=== PATIENT | female | born 2000 | race African-American/Black ===

== ENCOUNTER 2020-12-15 00:26 | Emergency (ER) | payer BC ==
--- NOTE | 2020-12-15 02:45 | ER ---
Nurse's Notes [facility] Name: Desi Diaz Age: 20 yrs Sex: Female : 2000 Arrival Date: 12/15/2020 Time: 00:34 Bed 27 Private MD: Diagnosis: Streptococcal pharyngitis Presentation: 12/15 01:05 Chief complaint: Patient states: Swollen tonsils and sore throat that started yesterday em after I got of work. I feel really anxious and if feels hard to swallow. Coronavirus screen: Client denies travel out of the [place] in the last 14 days. Ebola Screen: Patient negative for fever greater than or equal to 101.5 degrees Fahrenheit, and additional compatible Ebola Virus Disease symptoms Patient denies exposure to infectious person. Patient denies travel to an Ebola-affected area in the 21 days before illness onset. Initial Sepsis Screen: Does the patient meet any 2 criteria? No. Patient's initial sepsis screen is negative. Does the patient have a suspected source of infection? No. Patient's initial sepsis screen is negative. Risk Assessment: Do you want to hurt yourself or someone else? Patient reports no desire to harm self or others. Onset of symptoms was December 14, 2020. 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 - Social history:: Smoking status: Patient reports the use of cigarette tobacco products, denies chronic smoking, but will smoke occasionally, Patient/guardian denies using alcohol, street drugs. - Family history:: not pertinent. - Hospitalizations: : No recent hospitalization is reported. Screenin:07 Abuse screen: Denies threats or abuse. Nutritional screening: No deficits noted. em Tuberculosis screening: No symptoms or risk factors identified. Fall Risk None identified. Assessment: 02:07 Pain: Complains of pain in throat. Neuro: Level of Consciousness is awake, alert, obeys em commands, Oriented to person, place, time, situation. Cardiovascular: Capillary refill < 3 seconds Patient's skin is warm and dry. Respiratory: Airway is patent Respiratory effort is even, unlabored, Respiratory pattern is regular, symmetrical. EENT: Nares are clear Reports difficulty swallowing nasal congestion. Derm: Skin is intact, is healthy with good turgor, Skin is pink, warm \T\ dry. Musculoskeletal: Capillary refill < 3 seconds, Range of motion: intact in all extremities. Vital Signs: 01:07 BP 163 / 88; Pulse 64; Resp 17; Temp 97.9; Pulse Ox 99% ; Weight 70.31 kg; Height 5 ft. em 6 in. (167.64 cm); Pain 7/10; 01:07 Body Mass Index 25.02 (70.31 kg, 167.64 cm) em ED Course: 00:34 Patient arrived in ED. es 01:06 Triage completed. em 01:08 Arm band placed on right wrist. em 02:03 Anuj Payton MD is Attending Physician. rn 02:07 William Harding RN is Primary Nurse. em 02:07 Patient has correct armband on for positive identification. em 02:57 No provider procedures requiring assistance completed. Patient did not have IV access em during this emergency room visit. Administered Medications: 02:41 Drug: Decadron (dexamethasone) 10 mg Route: IM; Site: right deltoid; em 02:58 Follow up: Response: Medication administered at discharge. em 02:58 Follow up: Response: Medication administered at discharge. em 02:58 Drug: Zithromax (azithromycin) 500 mg Route: PO; em 02:58 Follow up: Response: Medication administered at discharge. em Outcome: 02:45 Discharge ordered by . rn 02:57 Discharged to home ambulatory. em 02:57 Condition: stable 02:57 Discharge instructions given to patient, Instructed on discharge instructions, follow up and referral plans. medication usage, Demonstrated understanding of instructions, follow-up care, medications, Prescriptions given X 1. 02:58 Patient left the ED. em Signatures: Hope Jacques Edgar, RN RN em Anuj aPyton MD MD rn
--- NOTE | 2020-12-15 02:45 | EDPHYS ---
Physician Documentation [facility] Name: Desi Diaz Age: 20 yrs Sex: Female : 2000 Arrival Date: 12/15/2020 Time: 00:34 Bed 27 Private MD: ED Physician Anuj Payton HPI: 12/15 02:18 This 20 yrs old Black Female presents to ER via Ambulatory with complaints of Swollen rn throat. 02:18 The patient presents with States driving home from work when had the sensation that her rn throat was swollen. Clearing throat did not help. Got home and looked at throat seemed swollen to her and red so came in for further evaluation. He just had some shrimp that has had shrimp multiple occasions prior with no allergic reaction. Denies trauma. Now feels much better without the sensation that her throat is swollen. No fever cough congestion or runny nose . Onset: The symptoms/episode began/occurred just prior to arrival. Severity of symptoms: At their worst the symptoms were mild, in the emergency department the symptoms have improved. Modifying factors: The symptoms are alleviated by nothing, the symptoms are aggravated by swallowing. Associated signs and symptoms: Pertinent negatives chest pain, chills, cough, fever, flu-like symptoms, rhinorrhea. The patient has not experienced similar symptoms in the past. The patient has not recently seen a physician. 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 - Social history:: Smoking status: Patient reports the use of cigarette tobacco products, denies chronic smoking, but will smoke occasionally, Patient/guardian denies using alcohol, street drugs. - Family history:: not pertinent. - Hospitalizations: : No recent hospitalization is reported. ROS: 02:18 Constitutional: Negative for fever, chills, and weight loss, Eyes: Negative for injury, rn pain, redness, and discharge, ENT: Positive for sensation that throat is swollen Neck: Negative for injury, pain, and swelling, Cardiovascular: Negative for chest pain, palpitations, and edema, Respiratory: Negative for shortness of breath, cough, wheezing, and pleuritic chest pain, Abdomen/GI: Negative for abdominal pain, nausea, vomiting, diarrhea, and constipation, Back: Negative for injury and pain, : Negative for injury, bleeding, discharge, and swelling, MS/Extremity: Negative for injury and deformity, Skin: Negative for injury, rash, and discoloration, Neuro: Negative for headache, weakness, numbness, tingling, and seizure. Exam: 02:18 Constitutional: This is a well developed, well nourished patient who is awake, alert, rn and in no acute distress. Head/Face: Normocephalic, atraumatic. Eyes: Periorbital areas with no swelling, redness, or edema. ENT: No significant tonsillar swelling, no exudate, uvula midline and no swelling. No stridor. No nasal congestion or drainage. Neck: Trachea midline, no masses palpated, and no cervical lymphadenopathy. Supple, full range of motion without nuchal rigidity, or vertebral point tenderness. No Meningismus. Cardiovascular: Regular rate and rhythm. No pulse deficits. Respiratory: Speaking full sentences, unlabored. No increased work of breathing, no retractions or nasal flaring. Neuro: Awake and alert, GCS 15 Vital Signs: 01:07 BP 163 / 88; Pulse 64; Resp 17; Temp 97.9; Pulse Ox 99% ; Weight 70.31 kg; Height 5 ft. em 6 in. (167.64 cm); Pain 7/10; 01:07 Body Mass Index 25.02 (70.31 kg, 167.64 cm) em MDM: 02:03 Patient medically screened. rn 02:41 Differential diagnosis: group A strep tonsillitis, laryngitis, pharyngitis, rn tonsillitis, uvulitis, viral syndrome. Data reviewed: vital signs, nurses notes, lab test result(s), and as a result, I will discharge patient. Counseling: I had a detailed discussion with the patient and/or guardian regarding: the historical points, exam findings, and any diagnostic results supporting the discharge/admit diagnosis, lab results, the need for outpatient follow up, to return to the emergency department if symptoms worsen or persist or if there are any questions or concerns that arise at home. Response to treatment: the patient's symptoms have mildly improved after treatment, and as a result, I will discharge patient. Special discussion: I discussed with the patient/guardian in detail that at this point there is no indication for admission to the hospital. It is understood, however, that if the symptoms persist or worsen the patient needs to return immediately for re-evaluation. 02:41 ED course: Patient positive for strep, allergic to penicillin, will DC home with ariel Smith. 12/15 01:08 Order name: Strep; Complete Time: 02:37 em Administered Medications: 02:41 Drug: Decadron (dexamethasone) 10 mg Route: IM; Site: right deltoid; em 02:58 Follow up: Response: Medication administered at discharge. em 02:58 Follow up: Response: Medication administered at discharge. em 02:58 Drug: Zithromax (azithromycin) 500 mg Route: PO; em 02:58 Follow up: Response: Medication administered at discharge. em Disposition Summary: 12/15/20 02:45 Discharge Ordered Location: Home rn Problem: new rn Symptoms: have improved rn Condition: Stable rn Diagnosis - Streptococcal pharyngitis rn Followup: rn - With: Private Physician - When: As needed - Reason: Recheck today's complaints, Re-evaluation by your physician Discharge Instructions: - Discharge Summary Sheet em - Pharyngitis rn - Strep Throat, Adult rn Forms: - Work release form em - Medication Reconciliation Form rn - Thank You Letter rn - Antibiotic pattern mechanic - Prescription Opioid Use rn Prescriptions: - Zithromax Z-Georgi 250 mg Oral Tablet - take 1 tablet by ORAL route as directed for 5 days Day 1 - take two (2) tablets rn one time. Day 2, 3, 4 , 5 take one (1) tablet once daily.; 6 tablet; Refills: 0, Product Selection Permitted Signatures: Dispatcher [employer] William Mari RN RN em Anuj Payton MD MD rn
[2020-12-15 03:04] VITALS: BP 163/88; TEMP 97.9; O2SAT 99
[2020-12-15] MEDS ORDERED: dexAMETHasone 10 MG/ML VIAL ONE (03:12)
[2020-12-15] MEDS ORDERED: AZITHROMYCIN 250 MG TAB ONE (03:12)
== END 2020-12-15 02:58 | disposition home or self-care (01) ==
LOC: ER 00:26
DX: J02.0 Streptococcal pharyngitis (principal); F17.210 Nicotine dependence, cigarettes, uncomplicated; Z88.0 Allergy status to penicillin
CPT/HCPCS: 87081; 96372; 99283; J1100